=== PATIENT | male | born 1960 | race Caucasian/White ===

== ENCOUNTER 2023-03-28 08:39 | Emergency (ER) | payer OTHER, MEDICAID, SELFPAY ==
[2023-03-28 08:45] VITALS: BP 210/93; PULSE 80; RESP 20; TEMP 36.1; O2SAT 94; BMI 35.8
--- NOTE | 2023-03-28 08:46 | DI.CT.S_ITS ---
PROCEDURE: CT KIDNEY URETER BLADDER (KUB) INDICATIONS: Right-sided flank pain eval for stone TECHNIQUE: Axial sections were acquired from the lung bases to the pubic symphysis. Coronal and sagittal reformats were performed. For radiation dose reduction, the following was used: automated exposure control, adjustment of mA and/or kV according to patient size. COMPARISON: None. FINDINGS: Image quality: Excellent. Lung bases: Unremarkable. Heart: No significant findings. URINARY: Right Kidney: Mild hydronephrosis. Punctate nonobstructing calcification. Right Ureter: Mild hydroureter. 3 mm calcification the ureterovesicular junction. Left Kidney: No obstruction. Nonobstructing punctate calcification. Left Ureter: No hydroureter. Bladder: Normal wall thickness. No stones. ABDOMEN: Liver: Unremarkable. Gallbladder: Unremarkable. Biliary ducts: Unremarkable. Pancreas: Unremarkable. Spleen: Unremarkable. Adrenal Glands: Unremarkable. Stomach and Bowel: Stomach, small bowel loops, and colon are unremarkable. Peritoneum: No abnormal intraperitoneal fluid. No free air. Ventral Wall: No hernia. Abdominal Nodes: No enlarged retroperitoneal or mesenteric lymph nodes. Vessels: Aorta and inferior vena cava are normal in size. PELVIS: Pelvic Organs: Unremarkable. Pelvic Nodes: Unremarkable. Miscellaneous: Bilateral fat containing inguinal hernias are seen. Bones: Unremarkable. IMPRESSION: 3 mm calcification at the right ureterovesicular junction with mild hydroureter and hydronephrosis. Dictated by: Tana lLamas M.D. on 03/28/2023 at 9:57 Approved by: Tana Llamas M.D. on 03/28/2023 at 10:00
--- NOTE | 2023-03-28 08:47 | ED_ITS ---
HPI - General Adult General Chief complaint: Abdominal Pain Stated complaint: RT side pain back to front Time Seen by Provider: 03/28/23 08:44 Source: patient Mode of arrival: Ambulatory Limitations: no limitations History of Present Illness HPI narrative: Patient is a 62-year-old male here for evaluation of right-sided back pain that is now radiating around to the front of his abdomen. He states it was a fairly sudden onset at approximately 0800 hours this morning which was 45 minutes ago. Has had quite a bit of dry heaving since then. Has not urinated or had a bowel movement in the onset of the symptoms. No allergies. No prior abdominal surgeries. No history of kidney stones. No chest pain or shortness of breath. Related Data Previous Rx's Medication Instructions Recorded hydrocodone 5 mg-acetaminophen 325 1 tab PO Q4-6H PRN pain #14 tabs 03/28/23 mg tablet ondansetron 4 mg disintegrating 4 mg PO Q6H PRN nausea and 03/28/23 tablet vomiting #14 tabs Review of Systems Constitutional Constitutional: Reports system reviewed and no additional complaints, except as documented Cardiovascular Cardiovascular: Reports system reviewed and no additional complaints, except as documented Respiratory Respiratory: Reports system reviewed and no additional complaints, except as documented Gastrointestinal Gastrointestinal: Reports system reviewed and no additional complaints, except as documented Genitourinary Genitourinary: Reports system reviewed and no additional complaints, except as documented Hematologic/Lymphatic On Anticoagulants: No Patient History Social History Smoking Status: Former smoker Exam Initial Vital Signs Initial Vital Signs: Vital Signs Temperature 96.9 F L 03/28/23 08:45 Pulse Rate 80 03/28/23 08:45 Respiratory Rate 20 03/28/23 08:45 Blood Pressure 210/93 H 03/28/23 08:45 Pulse Oximetry 94 03/28/23 08:45 Oxygen Delivery Method Room Air 03/28/23 08:45 HENMT Head: normal to inspection and normocephalic Resp Effort & Inspection: normal respiratory effort Cardio Rate: regular rate GI Inspection: normal to inspection and non-distended Palpation: tender (Right-sided abdomen) Back/Spine/Pelvis Back: CVA tenderness right Neuro General: patient alert, patient awake and moves all extremities Extrem General: normal to inspection Course Orders Ordered: ED Orders 03/28/23 08:46 CT kidney ureter bladder (KUB) Stat 03/28/23 08:56 Complete Blood Count AUTO DIFF Stat Comprehensive Metabolic Panel Stat Lipase Stat 03/28/23 10:12 Urine Microscopic Stat Discontinued Medications Ketorolac Tromethamine (Ketorolac 30 Mg/Ml Vial) 30 mg IV NOW ONE Stop: 03/28/23 08:47 Last Admin: 03/28/23 08:54 Dose: 30 mg Documented By: YAIMA Ondansetron HCl (Ondansetron 4 Mg/2 Ml Inj) 4 mg IV NOW ONE Stop: 03/28/23 08:47 Last Admin: 03/28/23 08:54 Dose: 4 mg Documented By: YAIMA Ondansetron HCl (Ondansetron 4 Mg/2 Ml Inj) 4 mg IV NOW ONE Stop: 03/28/23 10:08 Last Admin: 03/28/23 10:15 Dose: 4 mg Documented By: ISABELL Vital Signs Vital signs: Vital Signs - 8 hr 03/28/23 08:45 03/28/23 09:30 Temperature 96.9 F L Pulse Rate 80 61 Respiratory Rate 20 16 Blood Pressure 210/93 H 177/81 H Pulse Oximetry 94 94 Oxygen Delivery Method Room Air Room Air Medical Decision Making Lab Data Lab results reviewed: Yes I reviewed the patient's lab results. 03/28/23 08:56 03/28/23 08:56 Labs: Lab Results 03/28/23 03/28/23 03/28/23 Range/Units 08:56 08:56 10:12 WBC 6.7 (4.5-11.0) X10^3/uL RBC 4.86 (4.5-5.9) X10^6/uL Hgb 14.8 (13.5-17.5) g/dL Hct 43.5 (41-53) % MCV 89.5 (80-100) fL MCH 30.5 (26-34) PG MCHC 34.1 (30-36) % RDW 13.7 (11.6-14.8) % Plt Count 336 (150-400) X10^3/uL Neut % (Auto) 46.7 L (50-75) % Lymph % (Auto) 39.9 (25-40) % Candler % (Auto) 8.5 (3-14) % Eos % (Auto) 3.4 (2-4) % Baso % (Auto) 1.5 (0-2) % Neut # (Auto) 3100 (5989-7067) /uL Lymph # (Auto) 2700 (7044-0416) /uL Candler # (Auto) 600 (0-900) /uL Eos # (Auto) 200 (0-450) /uL Baso # (Auto) 100 (0-100) /uL Sodium 138 (137-145) mmol/L Potassium 3.8 (3.4-5.1) mmol/L Chloride 104 (98-107) mmol/L Carbon Dioxide 25 (22-32) mmol/L BUN 12 (9-20) mg/dL Creatinine 0.95 (0.66-1.25) mg/dL Estimated GFR > 60 (>60) mL/min BUN/Creatinine Ratio 12.6 (6-22) Glucose 128 H (80-110) mg/dL Calcium 8.9 (8.4-10.2) mg/dL Total Bilirubin 0.9 (0.2-1.3) mg/dL AST 33 (17-59) IU/L ALT 36 (<50) IU/L Alkaline Phosphatase 78 (38-126) U/L Total Protein 7.3 (6.3-8.2) g/dL Albumin 4.2 (3.5-5.0) g/dL Globulin 3.1 (1.7-4.1) g/dL Albumin/Globulin Ratio 1.4 (1.0-2.8) Lipase 76 (23-300) U/L Urine RBC 1-5/hpf (0-5/HPF) Urine WBC 0-1/hpf (0-5/HPF) Ur Squamous Epith Cells 0-1 /hpf (0-5/HPF) Urine Bacteria None seen (None) Hyaline Casts 1-5/lpf (None) Ur Culture Indicated? Cult not indicated Urine Dip Bedside Urine Glucose Negative Bedside Urine Bilirubin - Negative Bedside Urine Ketone - Negative Urine Specific Boutte 1.025 Bedside Urine Occult Blood + Bedside Urine pH 6.0 Bedside Urine Protein +/- 15 Bedside Urine Urobilinogen - Negative Bedside Urine Nitrite - Negative Bedside Urine Leukocytes - Negative Esterase Point of care testing: Urine Dip Bedside Urine Glucose Negative Bedside Urine Bilirubin - Negative Bedside Urine Ketone - Negative Urine Specific Boutte 1.025 Bedside Urine Occult Blood + Bedside Urine pH 6.0 Bedside Urine Protein +/- 15 Bedside Urine Urobilinogen - Negative Bedside Urine Nitrite - Negative Bedside Urine Leukocytes - Negative Esterase Imaging Data CT scan - abdomen/pelvis: Radiologist's Impression: PROCEDURE:? CT KIDNEY URETER BLADDER (KUB) ? INDICATIONS:? Right-sided flank pain eval for stone ? TECHNIQUE:? Axial sections were acquired from the lung bases to the pubic symphysis.? Coronal and sagittal reformats were performed.? For radiation dose reduction, the following was used: ?automated exposure control, adjustment of mA and/or kV according to patient size.? ? COMPARISON:? None. ? FINDINGS:? Image quality:? Excellent.? ? Lung bases:? Unremarkable.? ? Heart:? No significant findings. ? URINARY: Right Kidney:? Mild hydronephrosis.? Punctate nonobstructing calcification.? Right Ureter:? Mild hydroureter.? 3 mm calcification the ureterovesicular junction.? ? Left Kidney:? No obstruction.? Nonobstructing punctate calcification.? Left Ureter:? No hydroureter.? ? Bladder:? Normal wall thickness. No stones. ? ? ? ABDOMEN: Liver:? Unremarkable.? ? Gallbladder:? Unremarkable.? ? Biliary ducts:? Unremarkable.? ? Pancreas:? Unremarkable.? ? Spleen:? Unremarkable.? ? Adrenal Glands:? Unremarkable.? ? ? Stomach and Bowel:? Stomach, small bowel loops, and colon are unremarkable.? Peritoneum:? No abnormal intraperitoneal fluid.? No free air.? ? Ventral Wall: ? No hernia.? Abdominal Nodes:? No enlarged retroperitoneal or mesenteric lymph nodes.? Vessels:? Aorta and inferior vena cava are normal in size.? ? PELVIS: Pelvic Organs:? Unremarkable.? ? Pelvic Nodes: Unremarkable. Miscellaneous:? Bilateral fat containing inguinal hernias are seen. ? ? ? Bones:? Unremarkable. ? IMPRESSION:? ? 3 mm calcification at the right ureterovesicular junction with mild hydroureter and hydronephrosis MDM Narrative Medical decision making narrative: Patient has a 3 mm right-sided ureteral stone which fits his clinical presentation today. Kidney functions unremarkable. Urinalysis shows no signs of infection. He states that his symptoms are much improved after treatments above. Will discharge home with symptom control. He was given return precautions and follow-up instructions. He expressed understanding and agreement. Discharge Plan Departure Patient Disposition: Home Clinical Impression: Right ureteral stone Instructions: DI for Kidney Stones Activity Restrictions/Additional Instructions: It is important that you stay hydrated. Use the pain medicine and nausea medication as needed. Return to the emergency department for fevers, pain that is not controlled with medicines, vomiting that is not controlled with medicines are inability to urinate like we discussed. Prescriptions: New hydrocodone-acetaminophen 5-325 mg tablet 1 tab PO Q4-6H PRN (Reason: pain) Qty: 14 0RF ondansetron 4 mg tablet,disintegrating 4 mg PO Q6H PRN (Reason: nausea and vomiting) Qty: 14 0RF Referrals: Miscellaneous,Doctor, MD [Primary Care Provider] - Stand Alone Forms: Patient Portal/API
[2023-03-28] MEDS: KETOROLAC 30 MG/ML VIAL IV (08:54)
[2023-03-28] MEDS: ONDANSETRON 4 MG/2 ML INJ IV ×2 (08:54→10:15)
[2023-03-28 09:08] LABS: Add Manual Diff / Slide Review NO; Basophils Absolute Auto 100 /uL (0-100); Basophils Percent Auto 1.5 % (0-2); Eosinophils Absolute Auto 200 /uL (0-450); Eosinophils Percent Auto 3.4 % (2-4); Hematocrit 43.5 % (41-53); Hemoglobin 14.8 g/dL (13.5-17.5); Lymphocytes Absolute Auto 2700 /uL (1100-4500); Lymphocytes Percent Auto 39.9 % (25-40); Mean Corpuscular HGB Conc 34.1 % (30-36); Mean Corpuscular Hemoglobin 30.5 PG (26-34); Mean Corpuscular Volume 89.5 fL (80-100); Monocytes Absolute Auto 600 /uL (0-900); Monocytes Percent Auto 8.5 % (3-14); Neutrophils Absolute Auto 3100 /uL (1500-7000); Neutrophils Percent Auto 46.7 % (50-75); Platelet Count 336 X10^3/uL (150-400); Red Blood Cell Count 4.86 X10^6/uL (4.5-5.9); Red Cell Distribution Width 13.7 % (11.6-14.8); White Blood Cell Count 6.7 X10^3/uL (4.5-11.0)
[2023-03-28 09:19] LABS: Alanine Aminotransferase 36 IU/L (<50); Albumin 4.2 g/dL (3.5-5.0); Albumin Globulin Ratio 1.4 (1.0-2.8); Alkaline Phosphatase 78 U/L (38-126); Aspartate Aminotransferase 33 IU/L (17-59); BUN Creatinine Ratio 12.6 (6-22); Bilirubin Total 0.9 mg/dL (0.2-1.3); Blood Urea Nitrogen 12 mg/dL (9-20); Calcium 8.9 mg/dL (8.4-10.2); Carbon Dioxide 25 mmol/L (22-32); Chloride 104 mmol/L (98-107); Estimated Glomerular Filt Rate > 60 mL/min (>60); Globulin 3.1 g/dL (1.7-4.1); Glucose 128 mg/dL (80-110); HEMOLYSIS 15 (0-50); Lipase 76 U/L (23-300); Potassium 3.8 mmol/L (3.4-5.1); Sodium 138 mmol/L (137-145); Total Protein 7.3 g/dL (6.3-8.2)
[2023-03-28 09:30] VITALS: BP 177/81; PULSE 61; RESP 16; O2SAT 94
[2023-03-28 10:41] LABS: Bacteria Urine None Seen; Culture Indicated Urine Cult Not Indicated; Hyaline Casts Urine 1-5/LPF; RBC Urine 1-5/HPF (0-5/HPF); Squamous Epithelial Cell Urine 0-1 /HPF (0-5/HPF); WBC Urine 0-1/HPF (0-5/HPF)
[2023-03-28 11:16] VITALS: BP 169/78; PULSE 56; RESP 17; O2SAT 95
[2023-03-28 11:30] VITALS: BP 175/79; PULSE 54; O2SAT 93
[2023-03-28] MEDS: HYDROCODONE/ACET 5/325 TABLET 1 TAB PO (11:35)
[2023-03-28] MEDS: METOCLOPRAMIDE 10 MG/2 ML INJ IV (11:36)
[2023-03-28 12:00] VITALS: BP 159/74; PULSE 52; O2SAT 92
== END 2023-03-28 12:32 | disposition home or self-care (01) ==
PROVIDERS: Emergency Provider Emergency Medicine
DX: N20.1 Calculus of ureter (principal)
CPT/HCPCS: 36415; 74176; 80053; 81003; 81015; 83690; 85025; 96374; 96375; 96376; 99284; J1885; J2405; J2765

== ENCOUNTER 2024-04-03 10:05 | Emergency (ER) | payer OTHER, MEDICAID, SELFPAY ==
[2024-04-03] VITALS (55 sets, daily range): BP systolic 89–215; BP diastolic 49–140; PULSE 39–67; RESP 12–25; TEMP 36.7; O2SAT 87–99; BMI 35.9
--- NOTE | 2024-04-03 10:12 | DI.RAD.S_ITS ---
PROCEDURE: XR ELBOW LT 2V INDICATIONS: elbow pain after fall TECHNIQUE: 2 views of the elbow were acquired. COMPARISON: None. FINDINGS: Bones: Dislocation. No obvious fractures identified. No suspicious bony lesions. Soft tissues: No elbow joint effusion. No suspicious soft tissue calcifications. IMPRESSION: Dislocation at the elbow. No obvious fractures seen. Dictated by: Edgard Giang M.D. on 04/03/2024 at 10:54 Approved by: Edgard Giang M.D. on 04/03/2024 at 10:55
--- NOTE | 2024-04-03 10:12 | ED_ITS ---
HPI - General Adult General Chief complaint: Trauma Stated complaint: fell off ladder, l arm injury/unable to move Time Seen by Provider: 04/03/24 10:10 Source: patient Mode of arrival: Ambulatory Limitations: no limitations History of Present Illness HPI narrative: Patient is a 63-year-old male who is here for evaluation of a left arm injury/left elbow injury. Patient states he was at work. He fell off of a ladder and landed on his left elbow. Has severe pain and inability to move his left elbow since then. Does not think that he hit his head but does not quite remember. No neck pain. No right upper extremity injuries. No abdominal pain or back pain or chest pain. Patient is ambulatory. No lower extremity injuries. Related Data Previous Rx's Medication Instructions Recorded hydrocodone 5 mg-acetaminophen 325 1 tab PO Q6H PRN pain #10 tabs 04/03/24 mg tablet Allergies Allergy/AdvReac Type Severity Reaction Status Date / Time No Known Drug Allergies Allergy Verified 03/28/23 11:35 Review of Systems Review of Systems Narrative: See HPI Patient History Social History Smoking Status: Former smoker Smoking Status: Former smoker tobacco type: cigarettes alcohol intake frequency: 0-2 drinks per day Substance Use Type: does not use Exam Initial Vital Signs Initial Vital Signs: Vital Signs Pulse Rate 62 04/03/24 10:11 Pulse Oximetry 93 04/03/24 10:11 Const General: cooperative and No ill appearing HENMT Head: normal to inspection and normocephalic Chest Chest: No crepitus and No tenderness Resp Effort & Inspection: normal respiratory effort Auscultation: clear to auscultation bilaterally Cardio Rate: regular rate Rhythm: regular rhythm Pulses: radial pulses present on the left GI Inspection: normal to inspection and non-distended Palpation: soft Back/Spine/Pelvis Cervical Spine: No cervical spinal tenderness Thoracic/Lumbar Spine: No paraspinal tenderness, No thoracic spinal tenderness and No lumbar spinal tenderness Skin Other: Superficial skin abrasions over the left elbow and over the right elbow Neuro General: patient alert, patient awake and patient oriented x3 Extrem Other: Deformity to the left elbow. Right upper extremities unremarkable. Pelvis is stable. Patient is ambulatory. Procedures Orthopedic Joint Reduction Joint #1: Time Out Performed: Yes Side: left Joint Reduction Location: elbow Analgesia: procedural sedation Technique used: direct manipulation Post-reduction neuro exam: intact Post-reduction vascular: intact Post Reduction X-Ray Obtained: Yes Post Reduction X-Ray Results: reduced Splint Applied: Yes Orthopedic Splinting/Casting Injury #1: Side: left Upper Extremity Injury Location: elbow Upper Extremity Immobilizer: posterior splint Post splinting neuro exam: intact Post splinting vascular exam: intact Placed by: Provider Procedural Sedation Consent signed: Yes Time out performed: Yes Indication: fracture/dislocation reduction ASA Class: II Mallampati Airway Classification: Class II Preparation: surveillance system monitor applied, pulse oximeter, capnometry used, supplemental O2 applied, suction/airway equipment at bedside and IV secured IV Propofol dose (mg): 120 Intraservice time/total sedation time (min): 20 ED Sedation Level: Moderate (Concious) Patient Tolerated Procedure: Well Complications: none Course Orders Ordered: ED Orders 04/03/24 10:12 XR elbow LT 2V Stat 04/03/24 10:33 XR chest 1V Stat 04/03/24 10:44 Complete Blood Count AUTO DIFF Stat 04/03/24 11:25 Comprehensive Metabolic Panel Stat Lipase Stat 04/03/24 12:30 XR elbow LT 2V Stat Discontinued Medications Hydromorphone HCl (Hydromorphone 1 Mg Inj) 1 mg IM NOW ONE Stop: 04/03/24 10:14 Last Admin: 04/03/24 10:18 Dose: 1 mg Documented By: ARLET Sodium Chloride (Normal Saline 0.9%) 1,000 mls @ 1,000 mls/hr IV BOLUS ONE Stop: 04/03/24 11:32 Last Infusion: 04/03/24 11:51 Dose: Infused Documented By: Admin: 04/03/24 10:51 Dose: 1,000 mls/hr Documented By: ARLET Ketamine HCl (Ketamine 500 Mg/5 Ml Inj) 200 mg IV NOW ONE Stop: 04/03/24 11:02 Last Admin: 04/03/24 12:31 Dose: Not Given Documented By: KERRI Propofol (Propofol 200 Mg/20 Ml Vial) 200 mg IV NOW ONE Stop: 04/03/24 11:44 Last Admin: 04/03/24 12:20 Dose: 120 mg Documented By: ARLET Propofol (Propofol 200 Mg/20 Ml Vial) 20 mg IV NOW ONE Stop: 04/03/24 12:32 Last Admin: 04/03/24 13:00 Dose: Not Given Documented By: KERRI Vital Signs Vital signs: Vital Signs - 8 hr 04/03/24 10:11 04/03/24 10:13 04/03/24 10:13 Temperature Pulse Rate 62 59 L Respiratory Rate Blood Pressure 184/84 H Pulse Oximetry 93 92 Oxygen Delivery Method 04/03/24 10:15 04/03/24 10:15 04/03/24 10:20 Temperature 98.1 F Pulse Rate 61 57 L 50 L Respiratory Rate 16 16 Blood Pressure 184/84 H Pulse Oximetry 91 96 94 Oxygen Delivery Method Room Air Room Air 04/03/24 10:25 04/03/24 10:30 04/03/24 10:32 Temperature Pulse Rate 48 L 43 L Respiratory Rate Blood Pressure 99/52 L Pulse Oximetry 96 93 Oxygen Delivery Method 04/03/24 10:32 04/03/24 10:35 04/03/24 10:40 Temperature Pulse Rate 44 L 41 L 39 L Respiratory Rate 15 17 23 Blood Pressure Pulse Oximetry 93 93 91 Oxygen Delivery Method Room Air 04/03/24 10:43 04/03/24 10:43 04/03/24 10:45 Temperature Pulse Rate 46 L 40 L Respiratory Rate 21 17 Blood Pressure 100/52 L Pulse Oximetry 91 89 L Oxygen Delivery Method 04/03/24 10:46 04/03/24 10:46 04/03/24 10:47 Temperature Pulse Rate 39 L Respiratory Rate 16 Blood Pressure 89/49 L 91/50 L Pulse Oximetry 89 L Oxygen Delivery Method 04/03/24 10:47 04/03/24 10:50 04/03/24 10:50 Temperature Pulse Rate 39 L 42 L Respiratory Rate 17 15 Blood Pressure 105/57 L Pulse Oximetry 87 L 92 Oxygen Delivery Method 04/03/24 10:55 04/03/24 10:56 04/03/24 10:56 Temperature Pulse Rate 43 L 46 L Respiratory Rate 17 17 Blood Pressure 124/61 Pulse Oximetry 92 91 Oxygen Delivery Method 04/03/24 11:01 04/03/24 11:01 04/03/24 11:05 Temperature Pulse Rate 47 L 52 L Respiratory Rate 16 23 Blood Pressure 142/64 H Pulse Oximetry 94 96 Oxygen Delivery Method 04/03/24 11:06 04/03/24 11:06 04/03/24 11:10 Temperature Pulse Rate 50 L Respiratory Rate 18 Blood Pressure 172/73 H 151/65 H Pulse Oximetry 96 Oxygen Delivery Method 04/03/24 11:10 04/03/24 11:15 04/03/24 11:15 Temperature Pulse Rate 52 L 49 L Respiratory Rate 17 23 Blood Pressure 160/77 H Pulse Oximetry 93 96 Oxygen Delivery Method 04/03/24 11:20 04/03/24 11:25 04/03/24 11:30 Temperature Pulse Rate 54 L 56 L 56 L Respiratory Rate 15 23 16 Blood Pressure Pulse Oximetry 91 95 96 Oxygen Delivery Method 04/03/24 11:35 04/03/24 11:40 04/03/24 11:45 Temperature Pulse Rate 55 L 58 L 58 L Respiratory Rate 15 18 17 Blood Pressure Pulse Oximetry 97 96 97 Oxygen Delivery Method 04/03/24 11:50 04/03/24 11:55 04/03/24 12:00 Temperature Pulse Rate 60 58 L 59 L Respiratory Rate 17 15 15 Blood Pressure Pulse Oximetry 95 96 97 Oxygen Delivery Method 04/03/24 12:01 04/03/24 12:01 04/03/24 12:05 Temperature Pulse Rate 59 L Respiratory Rate 14 Blood Pressure 194/90 H 178/93 H Pulse Oximetry 96 Oxygen Delivery Method 04/03/24 12:05 04/03/24 12:10 04/03/24 12:10 Temperature Pulse Rate 58 L 58 L Respiratory Rate 19 15 Blood Pressure 181/95 H Pulse Oximetry 99 97 Oxygen Delivery Method 04/03/24 12:15 04/03/24 12:15 04/03/24 12:15 Temperature Pulse Rate 61 Respiratory Rate 16 20 Blood Pressure 195/97 H Pulse Oximetry 93 Oxygen Delivery Method 04/03/24 12:20 04/03/24 12:20 04/03/24 12:25 Temperature Pulse Rate 63 64 Respiratory Rate 20 20 Blood Pressure 191/99 H Pulse Oximetry 96 91 Oxygen Delivery Method 04/03/24 12:26 04/03/24 12:26 04/03/24 12:30 Temperature Pulse Rate 60 60 Respiratory Rate 25 H 19 Blood Pressure 215/140 H Pulse Oximetry 93 98 Oxygen Delivery Method 04/03/24 12:31 04/03/24 12:31 04/03/24 12:35 Temperature Pulse Rate 60 Respiratory Rate 19 Blood Pressure 176/83 H 162/75 H Pulse Oximetry 99 Oxygen Delivery Method 04/03/24 12:35 04/03/24 12:40 04/03/24 12:40 Temperature Pulse Rate 62 59 L Respiratory Rate 18 17 Blood Pressure 170/81 H Pulse Oximetry 90 L 91 Oxygen Delivery Method 04/03/24 12:45 04/03/24 12:45 04/03/24 12:50 Temperature Pulse Rate 61 61 Respiratory Rate 16 12 Blood Pressure 168/82 H 169/85 H Pulse Oximetry 94 94 Oxygen Delivery Method 04/03/24 12:50 04/03/24 12:50 04/03/24 12:55 Temperature Pulse Rate 61 Respiratory Rate 21 Blood Pressure 169/85 H 158/84 H Pulse Oximetry 97 Oxygen Delivery Method 04/03/24 12:55 04/03/24 13:00 04/03/24 13:00 Temperature Pulse Rate 61 61 Respiratory Rate 17 14 Blood Pressure 173/89 H Pulse Oximetry 93 92 Oxygen Delivery Method 04/03/24 13:05 04/03/24 13:05 04/03/24 13:09 Temperature Pulse Rate 61 62 Respiratory Rate 17 16 Blood Pressure 168/86 H Pulse Oximetry 92 91 Oxygen Delivery Method 04/03/24 13:10 Temperature Pulse Rate Respiratory Rate Blood Pressure 169/88 H Pulse Oximetry Oxygen Delivery Method Medical Decision Making Lab Data Lab results reviewed: Yes I reviewed the patient's lab results. 04/03/24 10:44 04/03/24 11:25 Labs: Lab Results 04/03/24 04/03/24 Range/Units 10:44 11:25 WBC 7.5 (4.5-11.0) X10^3/uL RBC 4.45 L (4.5-5.9) X10^6/uL Hgb 13.4 L (13.5-17.5) g/dL Hct 40.0 L (41-53) % MCV 90.0 (80-100) fL MCH 30.0 (26-34) PG MCHC 33.4 (30-36) % RDW 13.7 (11.6-14.8) % Plt Count 316 (150-400) X10^3/uL Neut % (Auto) 52.0 (50-75) % Lymph % (Auto) 37.1 (25-40) % Maries % (Auto) 7.5 (3-14) % Eos % (Auto) 2.2 (2-4) % Baso % (Auto) 1.2 (0-2) % Neut # (Auto) 3900 (1604-5262) /uL Lymph # (Auto) 2800 (9183-0799) /uL Maries # (Auto) 600 (0-900) /uL Eos # (Auto) 200 (0-450) /uL Baso # (Auto) 100 (0-100) /uL Sodium 138 (137-145) mmol/L Potassium 3.9 (3.4-5.1) mmol/L Chloride 107 (98-107) mmol/L Carbon Dioxide 25 (22-32) mmol/L BUN 14 (9-20) mg/dL Creatinine 0.86 (0.66-1.25) mg/dL Estimated GFR > 60 (>60) mL/min BUN/Creatinine Ratio 16.3 (6-22) Glucose 116 H (80-110) mg/dL Calcium 8.2 L (8.4-10.2) mg/dL Total Bilirubin 0.7 (0.2-1.3) mg/dL AST 35 (17-59) IU/L ALT 32 (<50) IU/L Alkaline Phosphatase 63 (38-126) U/L Total Protein 6.1 L (6.3-8.2) g/dL Albumin 3.5 (3.5-5.0) g/dL Globulin 2.6 (1.7-4.1) g/dL Albumin/Globulin Ratio 1.3 (1.0-2.8) Lipase 62 (23-300) U/L Imaging Data Extremity x-ray #1: Radiologist's Impression: PROCEDURE: XR ELBOW LT 2V INDICATIONS: elbow pain after fall TECHNIQUE: 2 views of the elbow were acquired. COMPARISON: None. FINDINGS: Bones: Dislocation. No obvious fractures identified. No suspicious bony lesions. Soft tissues: No elbow joint effusion. No suspicious soft tissue calcifications. IMPRESSION: Dislocation at the elbow. No obvious fractures seen. CT scan - chest: Radiologist's Impression: PROCEDURE: XR CHEST 1V INDICATIONS: fall off ladder TECHNIQUE: One view of the chest was acquired. COMPARISON: None. FINDINGS: Surgical changes and devices: None. Lungs and pleura: Submaximal inspiration. Question pulmonary edema. Bibasilar atelectasis. No pleural effusions or pneumothorax. Mediastinum: Mediastinal contours appear normal. Heart size is top normal. Bones and chest wall: No suspicious bony lesions. Overlying soft tissues appear unremarkable. IMPRESSION: Submaximal inspiration. Question pulmonary edema. Bibasilar atelectasis. post reduction: Radiologist's Impression: PROCEDURE: XR ELBOW LT 3V INDICATIONS: post reduction TECHNIQUE: 3 views of the elbow were acquired. COMPARISON: [facility], CR, XR ELBOW LT 2V, 04/03/2024, 10:23. FINDINGS / IMPRESSION: Fiberglass cast is now in place posteriorly which partially limits radiographic detail with associated artifacts. Status post reduction of previously noted left elbow dislocation. 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 No gross radiographic evidence of displaced fracture. No high attenuation soft tissue foreign body. Follow-up suggested. If symptoms persist or worsen, MRI could be performed. ECG Data Attestation: I personally reviewed and interpreted this ECG as follows: Interpretation: Sinus bradycardia Ventricular rate of 42 Normal QRS Normal QTC No ST T wave changes MDM Narrative Medical decision making narrative: Left elbow dislocation from fall earlier today. Patient was neurovascularly intact. Patient was sedated in the dislocation was reduced as described above. Splint was placed for comfort. Patient was given care instructions and return precautions. He expressed understanding and agreement with plan. Discharge Plan Departure Patient Disposition: Home Clinical Impression: Dislocated elbow Instructions: DI for Elbow Dislocation Activity Restrictions/Additional Instructions: I would recommend wearing the splint for the next 24 hours. After that you can take it off and start [id number] exercises with your left elbow. You are going to need follow-up with orthopedic surgery. You can contact them with the number provided below for this follow-up. Return to the emergency department for new symptoms. Prescriptions: New hydrocodone-acetaminophen 5-325 mg tablet 1 tab PO Q6H PRN (Reason: pain) Qty: 10 0RF Referrals: Miscellaneous,DoctorMD [Primary Care Provider] - Gurdeep Wiggins MD [Physician] - Stand Alone Forms: Patient Portal/API
[2024-04-03] MEDS: HYDROMORPHONE 1 MG INJ IM (10:18)
--- NOTE | 2024-04-03 10:33 | DI.RAD.S_ITS ---
PROCEDURE: XR CHEST 1V INDICATIONS: fall off ladder TECHNIQUE: One view of the chest was acquired. COMPARISON: None. FINDINGS: Surgical changes and devices: None. Lungs and pleura: Submaximal inspiration. Question pulmonary edema. Bibasilar atelectasis. No pleural effusions or pneumothorax. Mediastinum: Mediastinal contours appear normal. Heart size is top normal. Bones and chest wall: No suspicious bony lesions. Overlying soft tissues appear unremarkable. IMPRESSION: Submaximal inspiration. Question pulmonary edema. Bibasilar atelectasis. Dictated by: Edgard Giang M.D. on 04/03/2024 at 10:56 Approved by: Edgard Giang M.D. on 04/03/2024 at 10:56
[2024-04-03] MEDS: SODIUM CHLORIDE 0.9% 1,000 ML 1000 ML IV (10:51)
[2024-04-03 10:53] LABS: Add Manual Diff / Slide Review NO; Basophils Absolute Auto 100 /uL (0-100); Basophils Percent Auto 1.2 % (0-2); Eosinophils Absolute Auto 200 /uL (0-450); Eosinophils Percent Auto 2.2 % (2-4); Hemoglobin 13.4 g/dL (13.5-17.5); Lymphocytes Absolute Auto 2800 /uL (1100-4500); Lymphocytes Percent Auto 37.1 % (25-40); Mean Corpuscular HGB Conc 33.4 % (30-36); Monocytes Absolute Auto 600 /uL (0-900); Monocytes Percent Auto 7.5 % (3-14); Neutrophils Absolute Auto 3900 /uL (1500-7000); Platelet Count 316 X10^3/uL (150-400); Red Blood Cell Count 4.45 X10^6/uL (4.5-5.9); Red Cell Distribution Width 13.7 % (11.6-14.8); White Blood Cell Count 7.5 X10^3/uL (4.5-11.0)
--- NOTE | 2024-04-03 10:55 | PC.NURSE ---
Addendum entered by Nan Sims R.N. 04/03/24 11:02: 1100 pt states that he feels better and is less woozy than before. BP 142/64 & HR remains in 50s. Pt a&ox4. Skin pink, warm and dry. Original Note: 1051 Pt HR bradied down to 38. Pt diaphoretic, pale, hypoxic and hypotensive. Pt stated that he felt woozy and dizzy. A&Ox4. Pt speech coherent and able to answer all questions appropriately. Dr Sherwood notified and verbal order for IV fluids, cardiac monitoring and EKG. Pt placed on 2L NC. 20G IV started in right hand and wrist. full stack web developer upgraded triage to Mod Trauma due to gut feeling and pt status.
[2024-04-03 12:19] LABS: Alanine Aminotransferase 32 IU/L (<50); Albumin 3.5 g/dL (3.5-5.0); Albumin Globulin Ratio 1.3 (1.0-2.8); Alkaline Phosphatase 63 U/L (38-126); Aspartate Aminotransferase 35 IU/L (17-59); BUN Creatinine Ratio 16.3 (6-22); Bilirubin Total 0.7 mg/dL (0.2-1.3); Blood Urea Nitrogen 14 mg/dL (9-20); Calcium 8.2 mg/dL (8.4-10.2); Carbon Dioxide 25 mmol/L (22-32); Chloride 107 mmol/L (98-107); Estimated Glomerular Filt Rate > 60 mL/min (>60); Globulin 2.6 g/dL (1.7-4.1); Glucose 116 mg/dL (80-110); HEMOLYSIS 27 (0-50); Lipase 62 U/L (23-300); Potassium 3.9 mmol/L (3.4-5.1); Sodium 138 mmol/L (137-145); Total Protein 6.1 g/dL (6.3-8.2)
[2024-04-03] MEDS: propofoL 200 MG/20 ML VIAL IV (12:20)
--- NOTE | 2024-04-03 12:30 | DI.RAD.S_ITS ---
PROCEDURE: XR ELBOW LT 3V INDICATIONS: post reduction TECHNIQUE: 3 views of the elbow were acquired. COMPARISON: [facility], CR, XR ELBOW LT 2V, 04/03/2024, 10:23. FINDINGS / IMPRESSION: Fiberglass cast is now in place posteriorly which partially limits radiographic detail with associated artifacts. Status post reduction of previously noted left elbow dislocation. 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 No gross radiographic evidence of displaced fracture. No high attenuation soft tissue foreign body. Follow-up suggested. If symptoms persist or worsen, MRI could be performed. Dictated by: Ghanshyam Mathis M.D. on 04/03/2024 at 12:51 Approved by: Ghanshyam Mathis M.D. on 04/03/2024 at 12:54
--- NOTE | 2024-04-03 12:51 | PC.NURSE ---
Addendum entered by Nan Sims R.N. 04/03/24 12:59: 1219 Time out called by Dr Sherwood. [address] Sherwood. Pt o2 sat dropped to 88%. Placed on 2L NC. Posterior splint placed. Pt tolerated procedure well without complication. Original Note: TO called by Dr Sherwood at 1220 for left elbow reduction and splinting. 1225
--- NOTE | 2024-04-03 14:43 | EKG_ITS ---
[address] [address] Test Date: 2024-04-03 Pat Name: Dannie Willard Department: Room: Gender: Male Facility Manager: MAXWELL : 1960 Requested By: Order Number: [id number] Reading MD: Americo Rossi Measurements Intervals [place] Rate: 42 P: 54 PA: 180 QRS: 3 QRSD: 82 T: 60 QT: 496 QTc: 414 Interpretive Statements Marked sinus bradycardia Electronically Signed On 04-05-2024 7:40:20 PDT by Americo Rossi
== END 2024-04-03 13:54 | disposition home or self-care (01) ==
PROVIDERS: Emergency Provider Emergency Medicine
DX: S53.106A Unspecified dislocation of unspecified ulnohumeral joint, initial encounter (principal); W11.XXXA Fall on and from ladder, initial encounter; R00.1 Bradycardia, unspecified
CPT/HCPCS: 24600; 29105; 36415; 71045; 73070; 80053; 83690; 85025; 93005; 96360; 96372; 99152; 99284; 99285; J1170; J2704

== ENCOUNTER 2024-12-22 12:53 | Outpatient (CLI) | payer OTHER, SELFPAY ==
[2024-12-22] VITALS (9 sets, daily range): BP systolic 161–194; BP diastolic 84–103; PULSE 48–65; RESP 14–16; TEMP 36.2; O2SAT 91–96
--- NOTE | 2024-12-22 12:54 | DI.RAD.S_ITS ---
PROCEDURE: PAIN L/S TRANSFORAMINAL INJECT INDICATIONS: LEFT L5/S1 TF SHRAVAN COMPARISON: None. FINDINGS/IMPRESSION: Fluoroscopic spot filming was performed to verify placement of spinal needles at the left L5-S1 level(s), as labeled on the films. Appropriate location(s) of the needle tip(s) was confirmed by injection of iodinated contrast. Dictated by: Hernan Burnett M.D. on 12/23/2024 at 10:57 Approved by: Hernan Burnett M.D. on 12/23/2024 at 10:58
[2024-12-22] MEDS: MIDAZOLAM 2 MG/2 ML VIAL IV (14:12)
[2024-12-22] MEDS: BUPIVACAINE 0.25% (PF) VIAL 2 ML INJ (14:18)
[2024-12-22] MEDS: DEXAMETHASONE 10 MG/ML VIAL INJ (14:18)
[2024-12-22] MEDS: BETAMETHASONE 30 MG/5 ML MDV 12 MG INJ (14:19)
[2024-12-22] MEDS: iopamidoL 15 ML VIAL 3 ML INJ (14:19)
--- NOTE | 2024-12-22 14:33 | P.PCN_ITS ---
Date/Time/Diagnoses Date of procedure: 12/22/24 Time of procedure: 14:33 Pre-procedure diagnosis: 1. FORAMINAL STENOSIS WITH LE SYMPTOMS Post-procedure diagnosis: same Procedure Notes Procedure: 1. FLUOROSCOPICALLY GUIDED CONTRAST CONTROLLED TRANSFORAMINAL EPIDURAL STEROID INJECTION - Left L5/S1 Indications: Dannie is referred by Dr. Villanueva for treatment of Foraminal Stenosis with Left LE Symptoms Physician: Ryan Selby Total Fluoroscopy time (seconds): 12 Total sedation minutes: 17 Complications: none Procedure in detail & Post-procedure care: FINDINGS Foraminal Nerve Root Compression secondary to disc disease and facet hypertrophy DESCRIPTION OF PROCEDURE Following review of allergy and review of potential side effects and complications, including, but not necessarily limited to, infection, allergic reaction, local tissue breakdown, stroke, temporary or permanent nerve injury, paralysis, and possible , the patient indicated that the patient understood and agreed to proceed. An informed consent document was signed by the patient, witnessed by a nurse, and placed in the patient's chart. Additionally, other treatment options including medications, modalities, and physical therapy were reviewed with the patient. After review of previous anaesthesic history and IV conscious sedation the patient was deemed safe to proceed with today?s procedure with IV conscious sedation as ASA class II designation. Safety time-out was performed to confirm patient ID, procedure to be performed and site of procedure. IV sedation was accomplished with a combination of 2mg of Versed was administered by the RN after DO order, titrated to patient comfort during the course of the procedure while the patient remained responsive to all verbal commands In the prone position following sterile prep and drape of the lumbar region, the Left L5/S1 posterior neuroforamen was identified fluoroscopically. The skin was anesthetized via a 25-gauge 1.5-inch needle with 1% lidocaine solution. At this point, a 22-gauge 5-inch spinal needle was atraumatically introduced and advanced under fluoroscopic guidance through the posterior Left L5/S1 neuroforamen to approximately the anterior aspect of the canal. Depth was confirmed on lateral view. Following negative aspiration, injection of approximately 1.5 cc of Isovue 200 under live fluoroscopy in the AP view confirmed excellent flow along the nerve root, into the epidural space without vascular or intrathecal uptake observed Radiological data, including multiple fluoroscopic views of the lumbosacral spine, reveal a spinal needle at the Left L5/S1 posterior neuroforamen. Subsequent views show flow of contrast material flowing superiorly and inferiorly along the nerve root confirming epidural flow. Subsequently, a test dose of 1.5cc of 0.25%marcaine solution was administered and patient was observed for two minutes for signs or symptoms of complications, including abdominal pain, shortness of breath, bilateral upper or lower extremity weakness, nausea and vomiting, prior to steroid injection. At this point, a total of 3cc or 10mg of dexamethasone and 12mg of betamethasone was injected without incident. The procedure tolerated the procedure well without signs or symptoms of complications prior to transfer to the recovery area continued monitoring without incident. The patient was then transferred to the recovery area where they were observed for an appropriate time after the injection. The patient reported a VAS score of 8 prior to the procedure and a post-procedure VAS of 1. POST OP INSTRUCTIONS The patient was provided a Pain Log to continue to record their response to the target-specific procedure prior to follow-up visit with their referring physi jorge. Additionally, specific post-injection care instructions and a contact number to our office were provided if concerns arise regarding possible complications associated with the procedure are suspected.
== END 2024-12-22 14:46 | disposition home or self-care (01) ==
LOC: RAD 12:54
PROVIDERS: PCP Family Medicine; Referring Provider Family Medicine; Visit Provider Physical Medicine & Rehabilitation
DX: M48.07 Spinal stenosis, lumbosacral region (principal); M51.17 Intervertebral disc disorders with radiculopathy, lumbosacral region; M47.27 Other spondylosis with radiculopathy, lumbosacral region
CPT/HCPCS: 64483; 99152; J0702; J1100; J2250